=== PATIENT | male | born 1960 | race African-American/Black ===

== ENCOUNTER 2025-07-19 02:26 | Emergency (ER) | payer OTHER, MEDICAID ==
[~2025-07-19] VITALS: Ht 180.3 cm; Wt 112.0 kg
[2025-07-19 05:13] VITALS: PULSE 72; RESP 22; O2SAT 96
[2025-07-19] MEDS: IPRATROPIUM/ALBUTEROL 0.5-3(2.5)MG/3ML NEB HHN ONE (05:13)
[2025-07-19] MEDS: DEXAMETHASONE 10 MG/ML VIAL PO ONE (05:15)
[2025-07-19] MEDS ORDERED: PRED10TA23 MT (05:46)
[2025-07-19] MEDS ORDERED: DOXY100C5 MT (05:46)
[2025-07-19 06:00] VITALS: BP 131/85; PULSE 67; RESP 17; TEMP 36.8; O2SAT 98
== END 2025-07-19 06:05 | disposition home or self-care (01) ==
LOC: ER 02:26
DX: R05.9 Cough, unspecified (principal); R09.81 Nasal congestion; I10 Essential (primary) hypertension; Z79.52 Long term (current) use of systemic steroids; Z79.899 Other long term (current) drug therapy
CPT/HCPCS: 99283; 71045; 94640; J1100; 94070

== ENCOUNTER 2025-08-15 23:06 | Emergency (ER) | payer OTHER, MEDICAID ==
[~2025-08-15] VITALS: Ht 180.3 cm; Wt 113.4 kg
[~2025-08-15 23:06] MED LIST: DOXY100C5 MT; PRED10TA23 MT
[2025-08-16 00:11] LABS: BASOPHILS % 1.5 % (0.0-2.0); EOSINOPHILS % 5.9 % (0.0-5.0); HEMATOCRIT. 45.8 % (42.0-52.0); HEMOGLOBIN. 14.6 g/dL (14.0-18.0); LYMPHOCYTES % 32.7 % (20.0-50.0); MEAN PLATELET VOLUME 8.8 fl (7.4-10.4); MONOCYTES % 9.4 % (2.0-8.0); NEUTROPHILS % 50.5 % (40.0-76.0); PLATELET 175 x1000/uL (130-400); RED BLOOD CELL COUNT 4.80 mill/uL (4.7-6.1); RED CELL DISTRIBUTION WIDTH 13.7 % (11.6-14.6)
[2025-08-16] MEDS: METHYLPREDNISOLONE SOD SUCC 125MG/2ML (ACT-O-VIAL) IM ONE (00:13)
[2025-08-16] MEDS: ACETAMINOPHEN 325MG TABLET PO ONE (00:13)
[2025-08-16 00:22] LABS: CREATININE 1.9 mg/dL (0.6-1.3); UREA NITROGEN BLOOD 18.0 mg/dL (9-23)
[2025-08-16] MEDS: ALBUTEROL (0.083%) 2.5MG/3ML NEB HHN SCH (00:49)
[2025-08-16] MEDS: IPRATROPIUM BROMIDE (0.02%) 0.5MG/2.5ML NEB HHN SCH (00:49)
[2025-08-16 00:50] VITALS: PULSE 84; RESP 20; O2SAT 95
[2025-08-16] MEDS ORDERED: D-ME473S50 PO (02:27)
[2025-08-16] MEDS ORDERED: ACET-2708 PO (02:27)
[2025-08-16] MEDS ORDERED: ALBU18HF2 IH (02:27)
[2025-08-16 02:38] VITALS: BP 120/72; PULSE 76; RESP 18; TEMP 36.8; O2SAT 100
[2025-08-16 04:56] LABS: INFLUENZA TYPE A Presumptive Negative (Pres. Neg.)
[2025-08-16 04:57] LABS: INFLUENZA TYPE B Presumptive Negative (Pres. Neg.)
[2025-08-16 04:59] LABS: RESPIRATORY SYNCYTIAL VIRUS Not Detected (Not Detectd)
== END 2025-08-16 02:39 | disposition home or self-care (01) ==
LOC: ER 23:06
DX: J20.9 Acute bronchitis, unspecified (principal); I12.9 Hypertensive chronic kidney disease with stage 1 through stage 4 chronic kidney disease, or unspecified chronic kidney disease; N18.30 Chronic kidney disease, stage 3 unspecified; Z88.6 Allergy status to analgesic agent; Z20.822 Contact with and (suspected) exposure to COVID-19
CPT/HCPCS: 99284; 71045; 80048; 85025; 36415; 87426; 87420; 87804 ×2; 94640; 96372; J2919